=== PATIENT | female | born 1975 | race Native Hawaiian/Other Pacific Islander ===

== ENCOUNTER 2020-01-17 20:17 | Emergency (ER) | payer OTHER ==
[2020-01-17] MEDS ORDERED: ACETAMINOPHEN 325 MG TAB PO ONE (21:30)
[2020-01-17] MEDS ORDERED: SODIUM CHLORIDE 0.9% 500 ML 500 ML IV ONE (21:33)
[2020-01-17] MEDS ORDERED: ACETAMINOPHEN 325 MG TAB ONE (21:33)
[2020-01-17 21:41] VITALS: BP 155/104
[2020-01-17 22:30] LABS: Alanine Aminotransferase 33 units/L (7-56); Albumin 3.9 g/dL (3.9-5); Blood Urea Nitrogen 10 mg/dL (7-17); Calcium 8.6 mg/dL (8.4-10.2); Hemolysis Index 4
[2020-01-17 22:31] LABS: Basophils % (Auto) 0.3 % (0.0-1.8); Eosinophils % (Auto) 0.1 % (0.0-4.3); Hematocrit 38.6 % (30.3-42.9); Hemoglobin 12.8 gm/dl (10.1-14.3); Lymphocytes % (Auto) 16.7 % (13.4-35.0); Mean Corpuscular HGB Conc 33 % (30-34); Mean Corpuscular Volume 80 fl (79-97); Monocytes # (Auto) 0.6 K/mm3 (0.0-0.8); Monocytes % (Auto) 10.4 % (0.0-7.3); Platelet Count 248 K/mm3 (140-440); Red Blood Count 4.84 M/mm3 (3.65-5.03); Red Cell Distribution Width 16.3 % (13.2-15.2)
--- NOTE | 2020-01-17 22:35 | XRay Report ---
CHEST 2 VIEWS INDICATION / CLINICAL INFORMATION: possible Sepsis. Covid 19 positive COMPARISON: None available. FINDINGS: SUPPORT DEVICES: None. HEART / MEDIASTINUM: No significant abnormality. LUNGS / PLEURA: Pulmonary opacities are present in the right midlung and left mid to lower lung. The appearance is most likely due to multifocal pneumonia. No pleural effusion. No pneumothorax. ADDITIONAL FINDINGS: No significant additional findings. IMPRESSION: 1. Multifocal bilateral pneumonia. Signer Name: Rea Mosley MD Signed: 01/17/2020 10:31 PM Workstation Name: [id number]
[2020-01-17 22:37] LABS: BUN/Creatinine Ratio 17
[2020-01-17 22:41] LABS: INR 0.93 (0.87-1.13)
--- NOTE | 2020-01-18 00:56 | Emergency Department Report ---
ED Fever HPI - General Chief Complaint: Dyspnea/Respdistress Stated Complaint: SOB PUI?: Yes Source: patient Exam Limitations: no limitations - History of Present Illness Initial Comments: This is a 44-year-old female with history of hypertension who presents with fever cough shortness of breath generalized malaise. She was recently tested +7 days ago for COVID-19. She has had symptoms for the past 10 days. Outside hospital perform CT scan of the chest which confirmed COVID-19 pneumonia. She came to the emergency department for reassessment. She just want to make sure she was okay. Home pulse oxygenation 92 to 93% on room air She was prescribed MDI inhaler at outside hospital. No previous history of asthma. Timing/Duration: other (Symptoms for the past 10 days) Fever Severity/Quality: greater than 102 F Fever Therapy [facility]: cold remedies Associated Symptoms: cough, nausea/vomiting, shortness of breath ED Review of Systems ROS: Stated complaint: SOB Other details as noted in HPI Comment: All other systems reviewed and negative Constitutional: fever, malaise Respiratory: cough, shortness of breath Gastrointestinal: nausea, vomiting ED Past Medical Hx - Past Medical History Hx Hypertension: Yes - Surgical History Past Surgical History?: No Hx Cholecystectomy: Yes - Social History Smoking Status: Never Smoker Substance Use Type: None - Medications Home Medications: Home Medications Medication Instructions Recorded Confirmed Last Taken Type Azithromycin [Zithromax TAB] 250 mg PO QDAY 4 Days #4 tablet 01/18/20 Unknown Rx Hydrocodone/Chlorphen P-Stirex 5 ml PO BID 7 Days #40 ml 01/18/20 Unknown Rx [Tussionex Pennkinetic Susp] ED Physical Exam - General Limitations: No Limitations General appearance: alert, in no apparent distress, other (Talkative ambulatory without difficulty) - Head Head exam: Present: atraumatic, normocephalic - Eye Eye exam: Present: normal appearance - ENT ENT exam: Present: mucous membranes moist - Neck Neck exam: Present: normal inspection, full ROM - Respiratory Respiratory exam: Present: normal lung sounds bilaterally. Absent: respiratory distress, wheezes, rales, rhonchi - Cardiovascular Cardiovascular Exam: Present: regular rate, normal rhythm, normal heart sounds. Absent: systolic murmur, diastolic murmur, rubs, gallop - GI/Abdominal GI/Abdominal exam: Present: soft, normal bowel sounds. Absent: distended, tenderness, guarding - Extremities Exam Extremities exam: Present: normal inspection - Neurological Exam Neurological exam: Present: alert, oriented X3 - Psychiatric Psychiatric exam: Present: normal affect, normal mood - Skin Skin exam: Present: warm, dry, intact, normal color. Absent: rash ED Course Vital Signs 01/17/20 21:26 Temperature 102.5 F H Pulse Rate 109 H Respiratory 18 Rate Blood Pressure 155/104 O2 Sat by Pulse 100 Oximetry ED Medical Decision Making - Lab Data Result diagrams: 01/17/20 21:45 01/17/20 21:45 Laboratory Results - last 24 hr 01/17/20 01/17/20 01/17/20 21:45 21:45 21:45 WBC 6.0 RBC 4.84 Hgb 12.8 Hct 38.6 MCV 80 MCH 26 L MCHC 33 RDW 16.3 H Plt Count 248 Lymph % (Auto) 16.7 [place] % (Auto) 10.4 H Eos % (Auto) 0.1 Baso % (Auto) 0.3 Lymph # 1.0 L [place] # 0.6 Eos # 0.0 Baso # 0.0 Seg Neutrophils % 72.5 H Seg Neutrophils # 4.3 PT 12.6 INR 0.93 VBG pH Sodium 132 L Potassium 4.2 Chloride 95.6 L Carbon Dioxide 23 Anion Gap 18 BUN 10 Creatinine 0.6 Estimated GFR > 60 BUN/Creatinine Ratio 17 Glucose 109 H Lactic Acid Calcium 8.6 Total Bilirubin 0.30 AST 32 ALT 33 Alkaline Phosphatase 90 Total Protein 7.8 Albumin 3.9 Albumin/Globulin Ratio 1.0 01/17/20 01/17/20 21:45 21:45 WBC RBC Hgb Hct MCV MCH MCHC RDW Plt Count Lymph % (Auto) [place] % (Auto) Eos % (Auto) Baso % (Auto) Lymph # [place] # Eos # Baso # Seg Neutrophils % Seg Neutrophils # PT INR VBG pH 7.447 H Sodium Potassium Chloride Carbon Dioxide Anion Gap BUN Creatinine Estimated GFR BUN/Creatinine Ratio Glucose Lactic Acid 0.80 Calcium Total Bilirubin AST ALT Alkaline Phosphatase Total Protein Albumin Albumin/Globulin Ratio - Radiology Data Radiology results: report reviewed Multifocal pneumonia chest radiograph according to radiology impression - Medical Decision Making COVID-19 pneumonia: Patient has had symptoms for 10 days. She was given reassurance. Prescribed azithromycin Tussionex. Critical care attestation.: If time is entered above; I have spent that time in minutes in the direct care of this critically ill patient, excluding procedure time. ED Disposition Clinical Impression: Pneumonia due to COVID-19 virus Disposition: TO HOME OR SELFCARE Is pt being admited?: No Does the pt Need Aspirin: No Condition: Stable Instructions: COVID-19 Prescriptions: Hydrocodone/Chlorphen P-Stirex [Tussionex Pennkinetic Susp] 5 ml PO BID 7 Days #40 ml Azithromycin [Zithromax TAB] 250 mg PO QDAY 4 Days #4 tablet Referrals: PERRI EVANS MD [Staff Physician] - as needed
[2020-01-18] MEDS ORDERED: AZITHROMYCIN 250 MG TAB PO ONE (00:57)
[2020-01-18] MEDS ORDERED: IBUPROFEN 800 MG TAB PO ONE (00:57)
[2020-01-18] MEDS ORDERED: SODIUM CHLORIDE 0.9% 500 ML 500 ML ONE (01:12)
== END 2020-01-18 02:26 | disposition home or self-care (01) ==
LOC: ED 20:17
DX: U07.1 COVID-19 (principal); J12.89 Other viral pneumonia; I10 Essential (primary) hypertension; Z90.49 Acquired absence of other specified parts of digestive tract; Z79.899 Other long term (current) drug therapy
CPT/HCPCS: 36415; 71046; 80053; 82140; 82805; 85025; 85610; 87040; 96360; 99284; J7040